=== PATIENT | male | born 1990 | race Caucasian/White ===

== ENCOUNTER 2020-07-17 18:35 | Emergency (ER) | payer MEDICAID ==
[~2020-07-17] VITALS: Ht 182.9 cm; Wt 118.0 kg
[~2020-07-17 18:35] MED LIST: (None)3.5 GM OP; AMOXICILLIN500 MG PO; ANTIVERT PO; FLEXERIL PO; GENTAMICIN15 ML/BTL OP; LORTAB 10-325 M1 TAB PO; MOTRIN800 MG PO; NAPROSYN500 MG PO; NO MEDS; ULTRAM50 M1 PO; VICOPROFEN PO
[2020-07-17 20:38] VITALS: BP 116/53
== END 2020-07-17 20:38 | disposition home or self-care (01) ==
LOC: ED 18:35
DX: B34.9 Viral infection, unspecified (principal); F17.210 Nicotine dependence, cigarettes, uncomplicated; Z20.822 Contact with and (suspected) exposure to COVID-19

== ENCOUNTER 2021-06-28 16:37 | Emergency (ER) | payer MEDICAID ==
[~2021-06-28] VITALS: Ht 182.9 cm; Wt 115.0 kg
[2021-06-28] MEDS ORDERED: ZPAK PO (18:24)
[2021-06-28] MEDS ORDERED: CODEINE/GUAIFEN1 SOL PO (18:24)
[2021-06-28 18:39] VITALS: BP 119/74
== END 2021-06-28 18:47 | disposition home or self-care (01) ==
LOC: ED 16:37
DX: U07.1 COVID-19 (principal); J40 Bronchitis, not specified as acute or chronic; F17.200 Nicotine dependence, unspecified, uncomplicated

== ENCOUNTER 2022-12-19 20:00 | Emergency (ER) | payer MEDICAID ==
[~2022-12-19] VITALS: Ht 185.4 cm; Wt 124.0 kg
[~2022-12-19 20:00] MED LIST changes: +CODEINE/GUAIFEN1 SOL PO; +ZPAK PO
[2022-12-19 20:44] VITALS: BP 116/88
[2022-12-19 21:18] LABS: URINE BILIRUBIN - DIPSTICK NEGATIVE (NEGATIVE); URINE BLOOD DIPSTICK TRACE-INTACT (NEGATIVE); URINE COLOR YELLOW; URINE GLUCOSE - DIPSTICK NEGATIVE (NEGATIVE); URINE KETONE NEGATIVE (NEGATIVE); URINE LEUK ESTERASE NEGATIVE (NEGATIVE); URINE PH 5.5 (4.5-8.0); URINE PROTEIN - DIPSTICK NEGATIVE (NEG-TRACE); URINE SPECIFIC GRAVITY >=1.030; URINE UROBILINOGEN - DIPSTICK 0.2 E.U./dL (0.2)
[2022-12-19 21:18] LABS: BASO% 0.5 % (0-3); EOS% 3.8 % (0-8); HEMATOCRIT 45.3 % (39.0-50.0); HEMOGLOBIN 15.2 g/dl (14.0-18.0); IMMATURE GRANULOCYTES 0.1 % (0.0-5.0); LYMPH% 26.5 % (15-41); MEAN CELL VOLUME 87.6 fL CALC (80.0-100.0); MEAN CORPUSCULAR HGB 29.4 pG CALC (26.0-32.0); MEAN CORPUSCULAR HGB CONC 33.6 g/dL CAL (32.0-36.0); MONO% 12.1 % (2-13); NEUT# 4.89 thou/uL (1.82-7.42); RED BLOOD COUNT 5.17 mill/uL (4.70-6.10); RED CELL DISTRI WIDTH 12.1 % (11.5-15.5)
[2022-12-19 21:19] LABS: URINE NITRITE - DIPSTICK NEGATIVE (Negative)
[2022-12-19 21:30] LABS: ALBUMIN 4.7 g/dL (3.2-5.0); ALKALINE PHOSPHATASE 59 u/l (38-126); ANION GAP 15 (6-22 (CALC)); BILIRUBIN, TOTAL 0.4 mg/dL (0.2-1.3); BUN 16 mg/dL (9-20); BUN/CREATININE RATIO 15 (12-20 (CALC)); CARBON DIOXIDE 23 mmol/l (22-30); CHLORIDE 104 mmol/l (95-108); CREATININE 1.1 mg/dL (0.7-1.3); GFR FOR AFR.AMER. > 60 ML/MIN (>=60 (CALC)); GFR OTHER RACES > 60 ML/MIN (>=60 (CALC)); SGOT/AST 42 u/l (17-59); SODIUM 139 mmol/l (137-146)
[2022-12-20] MEDS ORDERED: BACTRIM DS1 TAB PO (00:54)
[2022-12-20 04:42] VITALS: BP 110/56
== END 2022-12-20 01:35 | disposition home or self-care (01) ==
LOC: ED 20:00
PROVIDERS: Emergency Medicine
DX: N34.2 Other urethritis (principal); F17.200 Nicotine dependence, unspecified, uncomplicated; Z20.822 Contact with and (suspected) exposure to COVID-19
CPT/HCPCS: Q9967

== ENCOUNTER 2024-03-11 10:49 | Emergency (ER) | payer SELFPAY ==
[~2024-03-11] VITALS: Ht 185.4 cm; Wt 111.0 kg
[~2024-03-11 10:49] MED LIST changes: +BACTRIM DS1 TAB PO; +FLEXERIL5 M1 PO; +NAPROXEN500 MG PO
[2024-03-11 10:56] VITALS: BP 130/93
[2024-03-11 11:00] VITALS: BP 135/88
[2024-03-11 11:15] VITALS: BP 132/88
[2024-03-11 11:31] VITALS: BP 115/68
[2024-03-11 11:45] VITALS: BP 118/78
[2024-03-11 12:23] LABS: BASO% 0.4 % (0-3); EOS% 2.5 % (0-8); HEMOGLOBIN 16.2 g/dl (14.0-18.0); IMMATURE GRANULOCYTES 0.2 % (0.0-5.0); LYMPH% 34.9 % (15-41); MEAN CELL VOLUME 87.5 fL CALC (80.0-100.0); MEAN CORPUSCULAR HGB 30.2 pG CALC (26.0-32.0); MEAN CORPUSCULAR HGB CONC 34.5 g/dL CAL (32.0-36.0); MONO% 9.5 % (2-13); NEUT# 4.89 thou/uL (1.82-7.42); NEUT% 52.5 % (42-76); RED BLOOD COUNT 5.37 mill/uL (4.70-6.10); RED CELL DISTRI WIDTH 12.1 % (11.5-15.5)
[2024-03-11 12:57] LABS: CREATININE 1.1 mg/dL (0.7-1.3); POTASSIUM 3.9 mmol/l (3.5-5.1)
[2024-03-11 13:08] VITALS: BP 130/74
[2024-03-11] MEDS ORDERED: GOLYTELY PO ×2 (13:10→14:15)
== END 2024-03-11 13:36 | disposition home or self-care (01) | DRG 392 ==
LOC: ED 10:49
PROVIDERS: Family Medicine
DX: K59.00 Constipation, unspecified (principal); F17.200 Nicotine dependence, unspecified, uncomplicated

== ENCOUNTER 2024-03-16 12:15 | Emergency (ER) | payer SELFPAY ==
[~2024-03-16] VITALS: Ht 185.4 cm; Wt 108.8 kg
[~2024-03-16 12:15] MED LIST changes: +GOLYTELY PO
[2024-03-16 12:21] VITALS: BP 138/73
[2024-03-16 12:30] VITALS: BP 138/73
[2024-03-16] MEDS ORDERED: FLOXIN OTIC0.3 % OT (12:30)
[2024-03-16] MEDS ORDERED: LEVOFLOXACIN750 MG PO (12:30)
== END 2024-03-16 12:58 | disposition home or self-care (01) | DRG 156 ==
LOC: ED 12:15
DX: H60.91 Unspecified otitis externa, right ear (principal); F17.200 Nicotine dependence, unspecified, uncomplicated